=== PATIENT | male | born 1970 | race American Indian/Alaskan Native ===

== ENCOUNTER 2021-12-08 21:02 | Emergency (ER) | payer OTHER ==
[2021-12-08] MEDS ORDERED: KETOROLAC 30 MG/1 ML INJ IM ONE (22:38)
[2021-12-08] MEDS ORDERED: ACETAMINOPHEN 500 MG TAB PO ONE (22:38)
--- NOTE | 2021-12-08 22:39 | Emergency Department Report ---
ED General Adult HPI - General Chief complaint: Pain General Stated complaint: BACK SPASMS Time Seen by Provider: 12/08/21 22:28 Source: patient, RN notes reviewed, old records reviewed Mode of arrival: Ambulatory Limitations: No Limitations - History of Present Illness Initial comments: The patient was evaluated in the emergency department for symptoms described in the history of present illness. He/she was evaluated in the context of the global COVID-19 pandemic, which necessitated consideration that the patient might be at risk for infection with the virus that causes COVID-19. Institutional protocols and algorithms that pertain to the evaluation of patients at risk for COVID-19 are in a state of rapid change based on information released by regulatory bodies including the CDC and federal and state organizations. These policies and algorithms were followed during the patient's care in the emergency department. Please note that these policies, procedures and recommendations changed on a rapid basis. This patient is a 51-year-old gentleman, who is right-hand dominant, who works as a precinct police lieutenant locally, who presents to the ER today with complaint of left lateral thoracic muscular pain, after playing cards, and then pulling/twisting and sneezing in the shower. He denies travel, surgery, immobilization, DVT/PE risk factors. Denies headache, neck pain, chest pain, abdominal pain, shortness of breath, vomiting, diarrhea and urinary symptoms. Pain is point tender, increases with palpation, range of motion, decreases with rest and position. Took pain medication last night, this improved his symptoms has not taken any pain medication today. No additional injuries and complaints. -: Sudden Location: chest (Left lateral thorax) Radiation: back Quality: aching Consistency: other Improves with: other Worsens with: other Associated Symptoms: denies other symptoms - Related Data Previous Rx's Medication Instructions Recorded Last Taken Type Acetaminophen [Non-Aspirin Extra 650 mg PO Q6HR PRN #30 tablet 12/09/21 Unknown Rx Strength] Ibuprofen [Motrin] 600 mg PO Q8H PRN #30 tablet 12/09/21 Unknown Rx Allergies Allergy/AdvReac Type Severity Reaction Status Date / Time No Known Allergies Allergy Unverified 12/08/21 22:23 ED Review of Systems ROS: Stated complaint: BACK SPASMS Other details as noted in HPI Comment: All other systems reviewed and negative Respiratory: denies: shortness of breath Cardiovascular: denies: chest pain Musculoskeletal: other (Muscular rib pain) ED Past Medical Hx - Past Medical History Previous Medical History?: Yes Hx Kidney Stones: Yes - Surgical History Past Surgical History?: No - Social History Smoking Status: Never Smoker Substance Use Type: None - Medications Home Medications: Home Medications Medication Instructions Recorded Confirmed Last Taken Type Acetaminophen [Non-Aspirin Extra 650 mg PO Q6HR PRN #30 tablet 12/09/21 Unknown Rx Strength] Ibuprofen [Motrin] 600 mg PO Q8H PRN #30 tablet 12/09/21 Unknown Rx ED Physical Exam - General Limitations: No Limitations General appearance: alert, in no apparent distress - Head Head exam: Present: atraumatic, normocephalic - Eye Eye exam: Present: normal appearance, EOMI. Absent: nystagmus - ENT ENT exam: Present: normal exam, normal orophraynx, mucous membranes moist, normal external ear exam - Neck Neck exam: Present: normal inspection, full ROM. Absent: tenderness, meningism us - Respiratory Respiratory exam: Present: normal lung sounds bilaterally, chest wall tenderness (Reproducible lateral rib tenderness). Absent: respiratory distress, wheezes, rales, rhonchi, stridor, decreased breath sounds - Cardiovascular Cardiovascular Exam: Present: regular rate, normal rhythm, normal heart sounds. Absent: bradycardia, tachycardia, irregular rhythm, systolic murmur, diastolic murmur, rubs, gallop - GI/Abdominal GI/Abdominal exam: Present: soft, normal bowel sounds. Absent: distended, tenderness, guarding, rebound, rigid, pulsatile mass - Rectal Rectal exam: Present: deferred - Extremities Exam Extremities exam: Present: normal inspection, full ROM, other (2+ pulses noted in the bilateral upper and lower extremities. There is no palpable cord. negative Homans sign. Muscular compartments are soft. The pelvis is stable.). Absent: pedal edema, calf tenderness - Back Exam Back exam: Present: normal inspection, full ROM. Absent: tenderness, CVA tenderness (R), CVA tenderness (L), paraspinal tenderness, vertebral tenderness - Neurological Exam Neurological exam: Present: alert, oriented X3, normal gait, reflexes normal, other (No facial droop. Tongue midline. Extraocular movements intact bilaterally. Facial sensation intact to light touch in V1, V2, V3 distribution bilaterally. 5 and a 5 strength in 4 extremities. Sensation intact to light touch in 4 extremities.). Absent: motor sensory deficit - Psychiatric Psychiatric exam: Present: normal affect, normal mood - Skin Skin exam: Present: warm, dry, intact, normal color. Absent: rash ED Course Vital Signs 12/08/21 22:16 Temperature 98.5 F Pulse Rate 80 Respiratory 18 Rate Blood Pressure 123/82 O2 Sat by Pulse 97 Oximetry - Reevaluation(s) Reevaluation #1: 12/08/21 22:48 Differential diagnosis, including not limited to: Muscular sprain, strain, lateral thoracic costochondritis, pneumothorax, pneumonia Assessment and plan: 51-year-old gentleman, who is not currently tachycardic, tachypneic or hypoxic, who denies DVT/PE risk factors, PERC negative, low risk by Wells criteria for pulmonary embolism, no urinary symptoms, no CVA tenderness, with reproducible left-sided rib tenderness, in the context of sudden movement. EKG unremarkable. Chest x-ray unremarkable. No evidence of skin infection, or zoster. ekg within normal limits, xr chest within normal limits felt improved after supportive and symptomatic therapy. Vital signs stable. Discharged with Tylenol, Motrin, rest, ice, compression elevation therapy. 12/09/21 00:04 ED Medical Decision Making - Lab Data Vital Signs 12/08/21 22:16 Temperature 98.5 F Pulse Rate 80 Respiratory 18 Rate Blood Pressure 123/82 O2 Sat by Pulse 97 Oximetry - EKG Data -: EKG Interpreted by Ok EKG shows normal: sinus rhythm Rate: normal - EKG Data When compared to previous EKG there are: previous EKG unavailable 12/08/21 22:48 The EKG is interpreted at 22: 42 Sinus rhythm, rate 73 bpm. Normal axis, normal intervals, high left ventricular voltage. Not a STEMI. No prior for comparison. - Radiology Data Radiology results: pending, report reviewed, image reviewed CHEST 2 VIEWS INDICATION / CLINICAL INFORMATION: left lateral thoracic pain. COMPARISON: None available. FINDINGS: SUPPORT DEVICES: None. HEART / MEDIASTINUM: No significant abnormality. LUNGS / PLEURA: No significant pulmonary or pleural abnormality. No pneumothorax. ADDITIONAL FINDINGS: No significant additional findings. IMPRESSION: 1. No acute findings. Signer Name: Sandeep Ac MD Signed: 12/08/2021 10:03 PM Workstation Name: [email or web address] Critical care attestation.: If time is entered above; I have spent that time in minutes in the direct care of this critically ill patient, excluding procedure time. ED Disposition Clinical Impression: Rib pain on left side Disposition: 01 HOME / SELF CARE / HOMELESS Is pt being admited?: No Does the pt Need Aspirin: No Condition: Stable Instructions: Chest Wall Pain, [id number] Additional Instructions: Rest, and avoid heavy lifting. Take the pain medications as needed and directed. Alternate ice packs and heat packs as needed for physical pain. Follow-up with a primary care doctor within the next week to 10 days. Please return to the emergency room right away with new pain, worsened pain, migration of pain, projectile vomiting, change in mental status, confusion, inability tolerate liquid feeds, new, worsened or different symptoms not present on the initial emergency room evaluation Referrals: [facility] [place] [Provider Group] - 3-5 Days Forms: Work/School Release Form(ED)
--- NOTE | 2021-12-08 23:08 | XRay Report ---
CHEST 2 VIEWS INDICATION / CLINICAL INFORMATION: left lateral thoracic pain. COMPARISON: None available. FINDINGS: SUPPORT DEVICES: None. HEART / MEDIASTINUM: No significant abnormality. LUNGS / PLEURA: No significant pulmonary or pleural abnormality. No pneumothorax. ADDITIONAL FINDINGS: No significant additional findings. IMPRESSION: 1. No acute findings. Signer Name: Sandeep Ac MD Signed: 12/08/2021 11:03 PM Workstation Name: [email or web address]
[2021-12-09 01:14] VITALS: BP 133/75
--- NOTE | 2021-12-12 13:33 | Electrocardiograph Report ---
[facility] Test Date: 2021-12-08 Test Time: 22:42:36 Pat Name: SEBASTIAN MANRIQUEZ Department: Room: Gender: M Business Team Leader: jordan : 1970 Requested By: MUNDO POLLARD Order Number: [id number] Reading MD: Celso Austin Measurements Intervals [place] Rate: 73 P: 97 MO: 164 QRS: 74 QRSD: 81 T: 51 QT: 366 QTc: 402 Interpretive Statements Sinus rhythm Early repolarization ST change No previous ECG available for comparison Electronically Signed On 12-12-2021 13:33:23 EST by Celso Austin
== END 2021-12-09 01:10 | disposition home or self-care (01) ==
LOC: ED 21:02
DX: R07.81 Pleurodynia (principal)
CPT/HCPCS: 71046; 93005; 93010; 96372; 99283; J1885